=== PATIENT | female | born 1980 | race Caucasian/White ===

== ENCOUNTER 2023-07-19 22:24 | Emergency (ER) | payer MEDICAID ==
[~2023-07-19] VITALS: Ht 182.9 cm; Wt 113.4 kg
[2023-07-19 22:40] VITALS: BP 108/74; PULSE 105; RESP 18; TEMP 99; O2SAT 98
[2023-07-19 23:44] VITALS: BP 131/63; PULSE 99; RESP 18; O2SAT 97
== END 2023-07-20 00:40 | disposition home or self-care (01) ==
LOC: ER 22:24
DX: M79.662 Pain in left lower leg (principal); Z86.718 Personal history of other venous thrombosis and embolism; Z87.19 Personal history of other diseases of the digestive system
CPT/HCPCS: 93971; 99284

== ENCOUNTER → 2023-10-12 | Outpatient (CLI) | payer MEDICAID, OTHER ==
[2023-10-12 17:42] LABS: INR 0.9; PROTHROMBIN PROTIME 9.9 SEC (9.7-11.6)
[2023-10-16 13:11] LABS: ANTICARDIOLIPIN AB, IgA, QN <9 APL U/mL (0-11); ANTICARDIOLIPIN AB, IgM, QN <9 MPL U/mL (0-12)
== END | disposition home or self-care (01) ==
LOC: LAB 16:36
PROVIDERS: ATTEND Student in an Organized Health Care Education/Training Program
DX: M79.605 Pain in left leg (principal); R50.9 Fever, unspecified; R11.0 Nausea; Z20.822 Contact with and (suspected) exposure to COVID-19; I10 Essential (primary) hypertension; F14.90 Cocaine use, unspecified, uncomplicated; F12.90 Cannabis use, unspecified, uncomplicated
CPT/HCPCS: 36415; 81241; 85379; 85610; 85730; 86147

== ENCOUNTER → 2023-10-13 | Outpatient (CLI) | payer OTHER | END | disposition home or self-care (01) | LOC: RAD 14:14 | PROVIDERS: ATTEND Student in an Organized Health Care Education/Training Program | DX: M79.605 Pain in left leg (principal) | CPT/HCPCS: 93971 ==

== ENCOUNTER → 2023-12-04 | Outpatient (CLI) | payer OTHER | END | disposition home or self-care (01) | LOC: RAD 13:02 | PROVIDERS: ATTEND Nurse Practitioner Women's Health | DX: Z01.411 Encounter for gynecological examination (general) (routine) with abnormal findings (principal); N93.9 Abnormal uterine and vaginal bleeding, unspecified; N85.2 Hypertrophy of uterus; Z97.5 Presence of (intrauterine) contraceptive device; R10.30 Lower abdominal pain, unspecified | CPT/HCPCS: 76830; 76856 ==

== ENCOUNTER → 2023-12-14 | Outpatient (CLI) | payer OTHER | END | disposition home or self-care (01) | LOC: RAD 13:25 | PROVIDERS: ATTEND Nurse Practitioner Women's Health | DX: Z12.31 Encounter for screening mammogram for malignant neoplasm of breast (principal) | CPT/HCPCS: 77063; 77067 ==

== ENCOUNTER → 2023-12-25 | Outpatient (CLI) | payer OTHER ==
[2023-12-25 13:56] LABS: HEMATOCRIT(ML) 42.8 % (36.0-46.0); HEMOGLOBIN 13.7 g/dL (12.0-15.0); MEAN CORP HGB 25.3 pg (26-34); MEAN CORP VOLUME 79.1 fL (78-100); RED BLOOD CELL 5.41 10^6/uL (4.00-5.20); RED CELL DISTRIBUTION WIDTH 14.1 % (11.5-14.5); WHITE BLOOD CELL 5.5 10^3/uL (4.5-11.0)
[2023-12-25 14:08] LABS: ALBUMIN(ML) 3.7 g/dL (3.4-5.0); ALBUMIN/GLOBULIN RATIO 0.973; ANION GAP 17.2; BUN/CREATININE RATIO 16.48 (10.0-20.0); CARBON DIOXIDE 21.8 mmol/L (20.0-32); CREATININE SERUM 0.91 mg/dL (0.59-1.40); EST GFR, NON-AA 67.8 (>/=60); LDL/HDL RATIO 1.2
== END | disposition home or self-care (01) ==
LOC: LAB 13:34
PROVIDERS: ATTEND Student in an Organized Health Care Education/Training Program
DX: E11.9 Type 2 diabetes mellitus without complications (principal); E78.5 Hyperlipidemia, unspecified
CPT/HCPCS: 36415; 80053; 80061; 83036; 85027

== ENCOUNTER 2024-05-11 13:39 | Emergency (ER) | payer OTHER ==
[~2024-05-11] VITALS: Ht 182.9 cm; Wt 113.4 kg
[2024-05-11 13:57] VITALS: BP 128/99; PULSE 102; RESP 18; TEMP 97.8; O2SAT 96
[2024-05-11 14:05] VITALS: BP 128/99; PULSE 102; RESP 18; TEMP 97.8; O2SAT 96
[2024-05-11 14:12] VITALS: BP 128/99; PULSE 102; RESP 18; TEMP 97.8; O2SAT 96
== END 2024-05-11 14:10 | disposition left against medical advice (07) ==
LOC: ER 13:39
DX: R10.32 Left lower quadrant pain (principal); K51.90 Ulcerative colitis, unspecified, without complications; Z90.49 Acquired absence of other specified parts of digestive tract; Z53.29 Procedure and treatment not carried out because of patient's decision for other reasons
CPT/HCPCS: 99281

== ENCOUNTER 2024-07-04 11:52 | Emergency (ER) | payer OTHER ==
[~2024-07-04] VITALS: Ht 182.9 cm; Wt 106.6 kg
[2024-07-04 11:52] VITALS: BP 131/76; PULSE 94; RESP 18; TEMP 98.6; O2SAT 95
[2024-07-04] MEDS ORDERED: TORADOL ONE (12:08)
[2024-07-04] MEDS: TORADOL IM STA (12:14)
== END 2024-07-04 12:22 | disposition home or self-care (01) ==
LOC: ER 11:52
DX: B34.9 Viral infection, unspecified (principal); E11.9 Type 2 diabetes mellitus without complications; Z90.49 Acquired absence of other specified parts of digestive tract
CPT/HCPCS: 99283; 96372; J1885